=== PATIENT | male | born 1950 | race Caucasian/White ===

== ENCOUNTER 2021-07-02 09:43 | Emergency (ER) | payer MEDICARE, OTHER ==
--- NOTE | 2021-07-02 10:16 | ED Physician Documentation ---
History of Present Illness - Stated complaint Stated Complaint: LOWER RT ABD PX - Chief complaint Chief Complaint: Abd Pain - History obtained from History obtained from: Patient - History of Present Illness Timing: Other (1 year ago) Pain level max: 3 Pain level now: 0 - Additonal information Additional information: Patient is a 71-year-old male who states that he has had right groin pain for the past year. Nothing seems to make it better or worse, described as sometimes sharp and sometimes pressure-like. He states he has not seen his primary care provider for about 10 years. He states he had a right inguinal hernia repair about 25 years ago and that the pain is at the site of the hernia repair. No testicular pain, swelling, masses. No abdominal pain, nausea, vomiting, diarrhea. No urinary symptoms. Nothing makes it better or worse. Review of Systems Constitutional: denies: Fever, Chills GI: denies: Nausea, Vomiting, Diarrhea Skin: denies: Rash Musculoskeletal: denies: Neck pain, Back pain Neurologic: denies: Headache PD PAST MEDICAL HISTORY - Past Medical History Past Medical History: Yes Cardiovascular: None Respiratory: None Neuro: None Endocrine/Autoimmune: None GI: Other HEENT: None Derm: None Other Past Medical History: inguinal hernia -rt - Past Surgical History Past Surgical History: Yes General: Other - Allergies Allergies/Adverse Reactions: Allergies Allergy/AdvReac Type Severity Reaction Status Date / Time No Known Drug Allergies Allergy Verified 07/02/21 09:59 - Social History Does the pt smoke?: Yes Smoking Status: Current every day smoker Does the pt have substance abuse?: No PD ED PE NORMAL - Vitals Vital signs reviewed: Yes - General General: Alert and oriented X 3, No acute distress, Well developed/nourished - HEENT HEENT: Moist mucous membranes - Neck Neck: Supple, no meningeal sign - Cardiac Cardiac: RRR, Strong equal pulses - Respiratory Respiratory: No respiratory distress, Clear bilaterally - Abdomen Abdomen: Soft, Non tender, Non distended - Derm Derm: Warm and dry - Extremities Extremities: Other (Right groin - Normal examination. No tenderness. No swelling. No bulges with bearing down. No skin changes.) - Neuro Neuro: Alert and oriented X 3 - Psych Psych: Normal mood, Normal affect Results - Vitals Vitals: Vital Signs - 24 hr 07/02/21 07/02/21 07/02/21 09:56 09:59 10:51 Temperature 36.6 C 36.6 C Heart Rate 89 81 Respiratory 17 15 Rate Blood Pressure 215/88 H 165/107 H O2 Saturation 100 98 Oxygen O2 Source Room air PD MEDICAL DECISION MAKING - ED course Complexity details: reviewed results, re-evaluated patient, considered differential, d/w patient ED course: 71-year-old male with right groin pain intermittently for the past year. Nothing seems to make it better or worse. Asymptomatic here. Normal exam here. Bedside ultrasound reveals normal common femoral arteries. No aneurysms. Patient is also hypertensive, he does not know his normal blood pressure. Recommend that he follow-up closely with his primary care provider for further care. Patient counseled regarding signs and symptoms for which I believe and urgent re-evaluation would be necessary. Patient with good understanding of and agreement to plan and is comfortable going home at this time This document was made in part using voice recognition software. While efforts are made to proofread this document, sound alike and grammatical errors may occur. Departure - Departure Disposition: 01 Home, Self Care Clinical Impression: Groin pain Qualifiers: Laterality: right Qualified Code(s): R10.31 - Right lower quadrant pain Hypertension Qualifiers: Hypertension type: unspecified Qualified Code(s): I10 - Essential (primary) hypertension Condition: Good Instructions: ED Hypertension Poss, ED Acute Pain [facility] Follow-Up: Viktoriya Carey PA-C [Provider Admit Priv/Credential] - Within 1 week Comments: The cause of your symptoms is unclear today. Please follow-up with your doctor for further care. It is also important that you have your blood pressure rechecked as it was significantly elevated today. Return if your symptoms worsen, you noticed testicular pain or swelling, vomiting, chest pain or other new or worrisome symptoms. Discharge Date/Time: 07/02/21 10:51
[2021-07-02 10:52] VITALS: BP 165/107
== END 2021-07-02 10:51 | disposition home or self-care (01) ==
LOC: ED 09:43
DX: R10.31 Right lower quadrant pain (principal); F17.200 Nicotine dependence, unspecified, uncomplicated
CPT/HCPCS: 99281; 99282

== ENCOUNTER 2021-08-15 15:03 | Outpatient (CLI) | payer MEDICARE, OTHER ==
--- NOTE | 2021-08-15 16:29 | XRAY Report ---
PROCEDURE: Hip w/Pelvis 2-3V RT INDICATIONS: RIGHT HIP PAIN TECHNIQUE: AP pelvis with lateral view(s) of the right hip(s). COMPARISON: None. FINDINGS: Bones: No fractures or dislocations. Pelvic ring appears intact. No suspicious bony lesions. Mild to moderate bilateral degenerative hip joint space narrowing with small periarticular osteophytes. N o suspicious osseous lesions or erosions. Soft tissues: The visualized bowel gas pattern is normal. No suspicious soft tissue calcifications. 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 Reviewed by: Cristy Doherty MD on 08/15/2021 4:28 PM PST Approved by: Cristy Doherty MD on 08/15/2021 4:28 PM PST Station ID: [id number]
== END 2021-08-15 15:04 | disposition home or self-care (01) ==
LOC: DI.N 15:03
PROVIDERS: ATTEND Physician Assistant Medical
DX: M16.0 Bilateral primary osteoarthritis of hip (principal); I10 Essential (primary) hypertension; Z12.5 Encounter for screening for malignant neoplasm of prostate
CPT/HCPCS: 36415; 73502; 80053; 80061; 84443; 85025; G0103; 83721; 84153

== ENCOUNTER 2021-11-22 12:52 | Day surgery (SDC) | payer MEDICARE, OTHER ==
[2021-11-22] MEDS ORDERED: LACTATED RINGERS 1,000 ML IV ONE ×2 (13:07→14:27)
--- NOTE | 2021-11-22 13:10 | ANESTHESIA ---
Pre-Anesthesia VS, & Labs - Diagnosis positive cologuard - Procedure colonoscopy Height: 5 ft 9 in Weight (kg): 72 kg Body Mass Index: 23.4 BMI Classification: Healthy weight - NPO >8 hours - Lab Results Lab results reviewed: Yes Home Medications and Allergies Home Medications: Ambulatory Orders Lisinopril [Zestril] 10 mg PO DAILY 11/21/21 Lisinopril [Zestril] 10 mg PO DAILY 11/21/21 Allergies/Adverse Reactions: Allergies Allergy/AdvReac Type Severity Reaction Status Date / Time No Known Drug Allergies Allergy Verified 11/22/21 13:24 Anes History & Medical History - Anesthetic History Anesthesia Complications: reports: No previous complications Family history of Anesthesia Complications: Denies Family history of Malignant Hyperthermia: Denies - Medical History Cardiovascular: reports: Hypertension Pulmonary: reports: None Gastrointestinal: reports: None Urinary: reports: None Neuro: reports: None Musculoskeletal: reports: None Endocrine/Autoimmune: reports: None Skin: reports: None Smoking Status: Current every day smoker - Surgical History General: reports: Hiatal hernia repair Exam General: Alert, Oriented x3, Cooperative, No acute distress Dental: WNL Mouth Openin Fingerbreadth Neck Mobility: Normal Mallampati classification: II Plan Anesthesia Type: General, Total IV Consent for Procedure(s) Verified and Reviewed: Yes Code Status: Attempt Resuscitation ASA classification: 2-Mild systemic disease Is this case an emergency?: No
[2021-11-22] MEDS ORDERED: PROPOFOL 500 MG/50 ML 500 MG/50 ML VIAL ONE (13:40)
[2021-11-22] MEDS ORDERED: PROPOFOL 200 MG/20 ML VIAL IVP ONE (14:06)
[2021-11-22 15:09] VITALS: BP 158/86
--- NOTE | 2021-11-22 15:18 | ANESTHESIA POST OP EVALUATION ---
Anesthesia Post Eval - Post Anesthesia Eval Vitals: Last Vital Signs Temp 36.4 C L 11/22/21 15:05 Pulse 60 11/22/21 15:05 Resp 16 11/22/21 15:05 BP 158/86 H 11/22/21 15:05 Pulse Ox 99 11/22/21 15:05 CV Function Including HR & BP: Stable Pain Control: Satisfactory Nausea & Vomiting: Negative Mental Status: Baseline Respiratory Status: Airway Patent Hydration Status: Satisfactory Anesthesia Complications: None
== END 2021-11-22 12:53 | disposition home or self-care (01) ==
LOC: SDS 12:52
PROVIDERS: ATTEND Surgery
PROC: 0DBP8ZZ Excision of Rectum, Via Natural or Artificial Opening Endoscopic (ICD-10-PCS; principal; 2021-11-22 14:00)
DX: R19.5 Other fecal abnormalities (principal); K62.1 Rectal polyp; G47.30 Sleep apnea, unspecified; F17.210 Nicotine dependence, cigarettes, uncomplicated
CPT/HCPCS: 45385; J7120

== ENCOUNTER 2022-09-03 13:01 | Outpatient (CLI) | payer MEDICARE, OTHER ==
[2022-09-03 19:36] LABS: BASOPHILS % (AUTO) 0.4 %; EOSINOPHILS # (AUTO) 0.1 10^3/uL (0.0-0.7); HCT - HEMATOCRIT 45.7 % (42.0-52.0); HGB - HEMOGLOBIN 15.2 g/dL (14.0-18.0); LYMPHOCYTES % (AUTO) 25.8 %; MEAN CORPUSCULAR HEMOGLOBIN 32.1 pg (27.0-31.0); MEAN CORPUSCULAR HGB CONC 33.3 g/dL (32.0-36.0); MEAN CORPUSCULAR VOLUME 96.4 fL (80.0-94.0); MEAN PLATELET VOLUME 10.1 fL (7.4-11.4); MONOCYTES # (AUTO) 0.6 10^3/uL (0.0-1.0); MONOCYTES % (AUTO) 7.2 %; NEUTROPHILS # (AUTO) 5.1 10^3/uL (1.5-6.6); NEUTROPHILS % (AUTO) 65.5 %; PLT - PLATELET COUNT 278 10^3/uL (130-450); RED BLOOD COUNT 4.74 10^6/uL (4.70-6.10); RED CELL DISTRIBUTION WIDTH 13.2 % (12.0-15.0); WHITE BLOOD COUNT 7.8 x10^3/uL (4.8-10.8)
[2022-09-03 20:16] LABS: ALBUMIN 3.9 g/dL (3.2-5.5); ALBUMIN/GLOBULIN RATIO 1.1 (1.0-2.2); ALKALINE PHOSPHATASE 44 IU/L (42-121); ALT ALANINE AMINOTRANSFERASE 22 IU/L (10-60); AST ASPARTATE AMINOTRANSFERASE 18 IU/L (10-42); BILIRUBIN,TOTAL 0.7 mg/dL (0.2-1.0); BUN - BLOOD UREA NITROGEN 17 mg/dL (6-20); CALCIUM 9.6 mg/dL (8.5-10.3); CARBON DIOXIDE - CO2 34 mmol/L (21-32); CHLORIDE 100 mmol/L (101-111); CHOLESTEROL 180 mg/dL; CREATININE 0.9 mg/dL (0.6-1.2); GFR - MDRD 83 (>89); GLUCOSE 96 mg/dL (70-100); HDL CHOLESTEROL 60 mg/dL; LDL CHOLESTEROL,CALCULATED 101 mg/dL; LDL/HDL RATIO 1.7 (<3.6); SODIUM 140 mmol/L (135-145); TOTAL PROTEIN 7.4 g/dL (6.7-8.2); TRIGLYCERIDES 97 mg/dL; VLDL CHOLESTEROL 19 mg/dL
== END 2022-09-03 13:02 | disposition home or self-care (01) ==
LOC: LAB.N 13:01
PROVIDERS: ATTEND Physician Assistant
DX: I10 Essential (primary) hypertension (principal); Z12.5 Encounter for screening for malignant neoplasm of prostate; Z13.220 Encounter for screening for lipoid disorders
CPT/HCPCS: 36415; 80053; 80061; 85025; G0103; 83721; 84153

== ENCOUNTER 2023-05-22 10:45 | Outpatient (CLI) | payer MEDICARE, OTHER ==
[2023-05-22 18:49] LABS: CALCIUM 9.8 mg/dL (8.5-10.3); CREATININE 0.8 mg/dL (0.6-1.3); POTASSIUM 3.9 mmol/L (3.5-4.5)
[2023-05-22 19:14] LABS: THYROID STIMULATING HORMONE 0.61 uIU/mL (0.34-5.60)
== END 2023-05-22 11:00 | disposition home or self-care (01) ==
LOC: LAB.N 10:45
PROVIDERS: ATTEND Physician Assistant Medical
DX: R60.0 Localized edema (principal)
CPT/HCPCS: 36415; 80048; 84443; 85379

== ENCOUNTER 2023-08-18 10:48 | Outpatient (CLI) | payer MEDICARE, OTHER ==
[2023-08-18 17:56] LABS: BASOPHILS % (AUTO) 0.6 %; EOSINOPHILS # (AUTO) 0.1 10^3/uL (0.0-0.7); EOSINOPHILS % (AUTO) 1.7 %; HCT - HEMATOCRIT 46.1 % (42.0-52.0); LYMPHOCYTES # (AUTO) 1.8 10^3/uL (1.5-3.5); LYMPHOCYTES % (AUTO) 26.2 %; MEAN CORPUSCULAR HEMOGLOBIN 31.4 pg (27.0-31.0); MEAN CORPUSCULAR HGB CONC 32.5 g/dL (32.0-36.0); MEAN CORPUSCULAR VOLUME 96.4 fL (80.0-94.0); MEAN PLATELET VOLUME 10.3 fL (7.4-11.4); MONOCYTES # (AUTO) 0.7 10^3/uL (0.0-1.0); MONOCYTES % (AUTO) 9.9 %; NEUTROPHILS # (AUTO) 4.3 10^3/uL (1.5-6.6); NEUTROPHILS % (AUTO) 61.5 %; PLT - PLATELET COUNT 278 10^3/uL (130-450); RED BLOOD COUNT 4.78 10^6/uL (4.70-6.10); RED CELL DISTRIBUTION WIDTH 13.5 % (12.0-15.0); WHITE BLOOD COUNT 6.9 x10^3/uL (4.8-10.8)
[2023-08-18 18:34] LABS: ALBUMIN 4.2 g/dL (3.2-5.5); ALBUMIN/GLOBULIN RATIO 1.4 (1.0-2.2); ALKALINE PHOSPHATASE 45 IU/L (42-121); ALT ALANINE AMINOTRANSFERASE 15 IU/L (10-60); AST ASPARTATE AMINOTRANSFERASE 14 IU/L (10-42); BILIRUBIN,TOTAL 0.7 mg/dL (0.2-1.0); BUN - BLOOD UREA NITROGEN 14 mg/dL (6-20); CALCIUM 9.8 mg/dL (8.5-10.3); CARBON DIOXIDE - CO2 33 mmol/L (21-32); CHLORIDE 104 mmol/L (101-111); CHOL/HDL RATIO 2.7 (<5.0); CHOLESTEROL 169 mg/dL; GFR - MDRD 74 (>89); GLUCOSE 88 mg/dL (74-104); HDL CHOLESTEROL 63 mg/dL; LDL CHOLESTEROL,CALCULATED 89 mg/dL; LDL/HDL RATIO 1.4 (<3.6); SODIUM 140 mmol/L (135-145); TOTAL PROTEIN 7.1 g/dL (6.4-8.9); TRIGLYCERIDES 83 mg/dL (48-352); VLDL CHOLESTEROL 17 mg/dL
== END 2023-08-18 10:49 | disposition home or self-care (01) ==
LOC: LAB.N 10:48
PROVIDERS: ATTEND Physician Assistant Medical
DX: I10 Essential (primary) hypertension (principal); D72.829 Elevated white blood cell count, unspecified; R97.20 Elevated prostate specific antigen [PSA]
CPT/HCPCS: 36415; 80053; 80061; 83721; 84153; 85025

== ENCOUNTER 2023-10-02 09:27 | Day surgery (SDC) | payer MEDICARE, OTHER ==
[2023-10-02] MEDS ORDERED: LACTATED RINGERS 1,000 ML IV ONE ×2 (09:33→11:03)
[2023-10-02] MEDS ORDERED: PROPOFOL 500 MG/50 ML 500 MG/50 ML VIAL ONE (10:08)
[2023-10-02] MEDS ORDERED: PROPOFOL 200 MG/20 ML VIAL IVP ONE (10:48)
--- NOTE | 2023-10-02 11:16 | ANESTHESIA ---
Pre-Anesthesia VS, & Labs - Diagnosis screening - Procedure colonoscopy Vital Signs: Temp Pulse Resp BP Pulse Ox O2 Flow Rate 36.2 C L 68 15 112/56 L 98 0 10/02/23 11:05 10/02/23 11:05 10/02/23 11:05 10/02/23 11:05 10/02/23 11:05 10/02/23 09:42 Height: 5 ft 8 in Weight (kg): 76.5 kg Body Mass Index: 25.6 BMI Classification: Overweight - NPO >8 hours Home Medications and Allergies Home Medications: Ambulatory Orders amLODIPine [Norvasc] 5 mg PO DAILY 10/01/23 Lisinopril [Zestril] 40 mg PO DAILY 11/21/21 amLODIPine [Norvasc] 5 mg PO DAILY 10/01/23 Allergies/Adverse Reactions: Allergies Allergy/AdvReac Type Severity Reaction Status Date / Time No Known Drug Allergies Allergy Verified 11/22/21 13:24 Anes History & Medical History - Anesthetic History Anesthesia Complications: reports: No previous complications Family history of Anesthesia Complications: Denies Family history of Malignant Hyperthermia: Denies - Medical History Cardiovascular: reports: Hypertension Pulmonary: reports: None Gastrointestinal: reports: None Urinary: reports: None Neuro: reports: None Musculoskeletal: reports: None Endocrine/Autoimmune: reports: None Skin: reports: None Smoking Status: Current every day smoker Psychosocial: reports: Alcohol - Surgical History General: reports: Hiatal hernia repair Exam General: Alert, Oriented x3, Cooperative Dental: WNL Mouth Openin Fingerbreadth Neck Mobility: Normal Mallampati classification: II Thyromental Distance: 4-6 cm Respiratory: Lungs clear Cardiovascular: Regular rate Plan Anesthesia Type: General, Total IV Consent for Procedure(s) Verified and Reviewed: Yes Code Status: Attempt Resuscitation ASA classification: 2-Mild systemic disease Is this case an emergency?: No
[2023-10-02 11:28] VITALS: O2SAT 99
[2023-10-02 11:48] VITALS: BP 153/103
--- NOTE | 2023-10-02 14:43 | ANESTHESIA POST OP EVALUATION ---
Anesthesia Post Eval - Post Anesthesia Eval Vitals: Last Vital Signs Temp 36.1 C L 10/02/23 11:42 Pulse 68 10/02/23 11:42 Resp 16 10/02/23 11:42 BP 153/103 H 10/02/23 11:42 Pulse Ox 99 10/02/23 11:42 O2 Flow Rate 0 10/02/23 09:42 CV Function Including HR & BP: Stable Pain Control: Satisfactory Nausea & Vomiting: Negative Mental Status: Baseline Respiratory Status: Airway Patent Hydration Status: Satisfactory Anesthesia Complications: None
== END 2023-10-02 09:28 | disposition home or self-care (01) ==
LOC: SDS 09:27
PROVIDERS: ATTEND Surgery
PROC: 0DBL8ZX Excision of Transverse Colon, Via Natural or Artificial Opening Endoscopic, Diagnostic (ICD-10-PCS; principal; 2023-10-02 10:30)
DX: Z12.11 Encounter for screening for malignant neoplasm of colon (principal); D12.3 Benign neoplasm of transverse colon; K57.30 Diverticulosis of large intestine without perforation or abscess without bleeding; I10 Essential (primary) hypertension; G47.30 Sleep apnea, unspecified; F17.200 Nicotine dependence, unspecified, uncomplicated
CPT/HCPCS: 45380; J7120

== ENCOUNTER 2023-10-03 14:05 | Outpatient (CLI) | payer MEDICARE, OTHER ==
--- NOTE | 2023-10-03 21:47 | XRAY Report ---
PROCEDURE: Ribs w/PA Chest 3+V LT INDICATIONS: RIB PAIN,LEFT SIDED TECHNIQUE: 2 views of the ribs were acquired, along with a single view chest. COMPARISON: None. FINDINGS: Surgical changes and devices: None. Bones and chest wall: Suspected nondisplaced fractures of the posterior left 9th and 10th ribs. No suspicious bony lesions. Overlying soft tissues appear unremarkable. Lungs and pleura: No pleural effusions or pneumothorax. Lungs appear clear. Mediastinum: Mediastinal contours appear normal. Heart size is normal. IMPRESSION: Suspected nondisplaced fractures of the left posterior 9th and 10th ribs. No pleural effusion or pneu mothorax. Reviewed by: Dex Reaves MD on 10/03/2023 9:46 PM PST Approved by: Dex Reaves MD on 10/03/2023 9:46 PM PST Station ID: [id number]
== END 2023-10-03 14:06 | disposition home or self-care (01) ==
LOC: DI 14:05
PROVIDERS: ATTEND Physician Assistant Medical
DX: R07.81 Pleurodynia (principal)